=== PATIENT | male | born 1995 | race Caucasian/White ===

== ENCOUNTER 2024-12-12 11:53 | Emergency (ER) | payer BC, SELFPAY ==
[2024-12-12 12:08] VITALS: BP 125/78; PULSE 77; RESP 16; TEMP 36.6; O2SAT 100
--- NOTE | 2024-12-12 13:23 | ED_ITS ---
HPI - URI/Sore Throat General Chief Complaint: Upper Respiratory Infection Stated Complaint: SORE THROAT/NECK PAIN Time Seen by Provider: 12/12/24 13:10 Source: patient, RN notes reviewed and old records reviewed Mode of arrival: ambulatory Limitations: no limitations History of Present Illness HPI Narrative: 29 year old male presents to [facility] care with complaints of left sided sore throat since yesterday with some neck discomfort on same side. Patient reports that pain is sharp at times reports painful swallowing. Patient states some nasal congestion with drainage, denies any cough or any fevers. Patient has taken some Sudafed for his symptoms. MD elicited complaint: sore throat Pertinent past history: other (strep when child) Onset (ago): day(s) (since yesterday) Pain scale (0-10): 4 Description of mucous: clear Able to tolerate fluids by mouth: Yes Treatments prior to arrival: other (Sudafed) Related Data Home Medications ?Medication ?Instructions ?Recorded ?Confirmed ?Last Taken ?Type No Home Medications 12/12/24 12/12/24 Unknown History Allergies Allergy/AdvReac Type Severity Reaction Status Date / Time No Known Allergies Allergy Verified 12/12/24 12:11 Review of Systems Review of Systems: CONSTITUTIONAL: Denies malaise, chills, sweats, or fever. EYES: Denies visual changes, redness, or discharge. ENT: Reports rhinorrhea, congestion, no sinus pain,no otalgia and positive sore throat. CARDIOVASCULAR: Denies chest pain, palpitations, or edema. RESPIRATORY: Reports no cough.? Denies dyspnea. GASTROINTESTINAL: Denies abdominal pain, nausea, vomiting, diarrhea SKIN: Denies rash or itching. MUSCULOSKELETAL: Denies myalgia. NEUROLOGIC: Denies headache. All systems reviewed & are unremarkable except as noted in HPI and below PMFSH Past Medical History Medical History (Updated 12/14/24 @ 20:56 by Stacie Duarte NP) History of strep sore throat when child Social History Social History (Updated 12/14/24 @ 20:57 by Stacie Duarte NP) Smoking status: Never smoker Alcohol intake: current Alcohol use details: social Substance use type: does not use Living arrangements: with family Gender identity (if verbalized by the patient): Male Comments At time of signature, agree with nursing past medical, surgical, social and family history. There is no relevant family history pertinent to the presenting complaint Exam Narrative: GENERAL: Well-appearing, well-nourished, and in no acute distress. HEAD: Normocephalic EYES: PERRLA, conjunctivae clear ENT: Nares clear, turbinates edematous and erythematous, clear discharge. Mucous membranes moist. TM pearly fam with dull light reflex bilaterally; no tragal tenderness. Oropharynx erythematous without lesions. Tonsils red not enlarged and throat with some white patches, no drooling, no hoarseness, no trismus, uvula midline.post nasal drainage NECK: Supple. No lymphadenopathy reports some left side of neck tenderness CHEST: Clear to auscultation, breath sounds equal. No wheezing, rhonchi, rales, or stridor. No respiratory distress, speaks in full sentences. no cough noted SAO2 100% on room air HEART: Regular rate and rhythm. No murmur heard. SKIN: Warm, dry, no rash. NEURO: Alert and oriented x3. PSYCH: Normal mood and affect Course Course Emergency Course: Patient is aware of diagnosis, understands and agrees to treatment plan.? Anticipatory guidance given.? Patient agrees to follow-up as directed and is aware of reasons to seek care at the emergency department. Portions of this record may have been created with voice recognition software Level of Care: Express Care Visit Vital Signs Vital signs: Vital Signs Temperature 36.6 C 12/12/24 12:08 Pulse Rate 77 12/12/24 12:08 Respiratory Rate 16 12/12/24 12:08 Blood Pressure 125/78 12/12/24 12:08 Pulse Oximetry 100 12/12/24 12:08 Temperature 36.6 C 12/12/24 12:08 Pulse Rate 77 12/12/24 12:08 Respiratory Rate 16 12/12/24 12:08 Blood Pressure 125/78 12/12/24 12:08 Pulse Oximetry 100 12/12/24 12:08 Reviewed MDM - URI/Sore Throat MDM Narrative Medical decision making narrative: Differential diagnosis considered: Gold virus, strep pharyngitis, allergic rhinitis, upper respiratory tract infection, sinusitis, rhinosinusitis, nasopharyngitis. viral pharyngitis, otitis media, otitis externa, pneumonia, bronchitis, viral cough syndrome, viral syndrome, and influenza.? Exam findings show no acute concerns or changes; patient is non-toxic appearing and is in no distress.? Patient is appropriate for outpatient treatment and follow-up. Differential Diagnosis Differential diagnosis: Likely upper respiratory infection, viral infection, pharyngitis and other (strep pharyngitis) Medical Records Attestation: I reviewed the patient's medical records. Lab Data Attestation: I reviewed the patient's lab results. Lab results narrative: strep screen negative, culture sent Labs: Lab Results 12/12/24 Range/Units 13:32 POC Grp A Strep Screen Negative (Negative) Critical Care Time Critical Care Time Critical Care Time: No Discharge Plan Discharge Clinical Impression: Upper respiratory infection Qualifiers: URI type: unspecified URI Qualified Code(s): J06.9 - Acute upper respiratory infection, unspecified Pharyngitis Qualifiers: Pharyngitis/tonsillitis etiology: unspecified etiology Qualified Code(s): J02.9 - Acute pharyngitis, unspecified Patient Disposition: Home, Self-Care Condition: Stable Instructions: Pharyngitis (ED), Upper Respiratory Infection (ED) Additional Instructions: Increase fluids especially juices and water Phwx-exm-yeopxue cough and cold medicine of your choice for your symptoms Zyrtec Claritin or Natasha daily include plain Sudafed Tylenol or ibuprofen for any fever pain heat to the face 20-30 minutes 4-6 times a day for pain Salt water gargles, throat lozenges or throat sprays as desired Your strep test today was negative. A throat culture will be sent to the laboratory for further testing. IF the test is positive, you will receive a phone call within 48 hours and an appropriate antibiotic will be initiated at that time. Patient Language: Kazakh Prescriptions: No Action No Home Medications Follow-up/Referrals: PHYSICIAN,[employer] SPECIALIST [Primary Care Provider] - Time of Disposition: 13:26 Quality Lu Coma Scale Eyes: Open Verbal: Oriented and Alert Motor: Follows Commands Lu Coma Total Score: 15
[2024-12-12 13:34] LABS: EDSTREPNEGPOS1 Negative (Negative)
== END 2024-12-12 13:32 | disposition home or self-care (01) ==
PROVIDERS: Emergency Provider Registered Nurse
DX: J06.9 Acute upper respiratory infection, unspecified (principal); J02.9 Acute pharyngitis, unspecified
CPT/HCPCS: 87081; 87880; 99203; G0463

== ENCOUNTER 2025-10-02 21:42 | Emergency (ER) | payer BC, SELFPAY ==
[2025-10-02 21:41] VITALS: BP 111/63; PULSE 76; RESP 14; TEMP 36.8; O2SAT 100
[2025-10-02 21:46] VITALS: BP 118/69; PULSE 77; RESP 14; TEMP 36.8; O2SAT 100
[2025-10-02 22:01] VITALS: BP 105/65; PULSE 71; RESP 14; O2SAT 100
[2025-10-02 22:31] VITALS: BP 104/69; PULSE 75; RESP 12; O2SAT 100
--- NOTE | 2025-10-02 22:39 | ED_ITS ---
HPI - Back Pain/Injury General Chief Complaint: Back Pain/Injury Stated Complaint: back pain Time Seen by Provider: 10/02/25 22:28 History of Present Illness HPI Narrative: 29-year-old male with history of longstanding sciatica presenting to the emergency department with low back pain radiating down his left leg consistent with his known sciatica pain. States that is the worst it has been previously and usually response to rest, position changes, anti-inflammatories. He has previously had physical therapy for this and steroid injections into his spine /hip with some intermittent relief. No previous surgical interventions. He has had MRIs before that showed disc bulging. he states he was doing some heavy lifting and repetitive activities throughout the day yesterday which could have triggered today's episode. He called ambulance as he was having difficulty with the pain. At rest and certain positions he has limited pain and otherwise comfortable appearing without distress. He states that trying to get up and walker certain bending motions of his left leg cause the pain to reproduce. No weakness or numbness in his foot, no footdrop. No traumatic injuries. Was otherwise in his normal state of health. No systemic symptoms otherwise besides the pain. Related Data Allergies Allergy/AdvReac Type Severity Reaction Status Date / Time No Known Allergies Allergy Verified 10/02/25 21:46 Review of Systems Review of Systems: As reviewed above in HPI All systems reviewed & are unremarkable except as noted in HPI and below PMFSH Past Medical History Medical History History of strep sore throat when child Social History Social History Smoking status: Never smoker Alcohol intake: current Alcohol use details: social Substance use type: does not use Living arrangements: with family Gender identity (if verbalized by the patient): Male Exam Narrative: GENERAL: [Well-appearing, well-nourished, and in no acute distress.] HEAD: [Normocephalic, atraumatic.] EYES: [PERRLA and EOMI.] ENT: Nares clear, no rhinorrhea or epistaxis. Mucous membranes moist. NECK: Supple. CHEST: [Clear to auscultation. No respiratory distress.] HEART: [Regular rate and rhythm]. No murmur heard. [Normal peripheral pulses.] ABDOMEN: [Soft, nondistended], [nontender], [No rigidity or guarding] EXTREMITIES: No midline spinal tenderness. No step-offs deformities of the hip. Negative straight leg raise bilaterally, EHL and FHL 5/5 strength bilaterally. Sensation intact globally. SKIN: Warm, dry, no rash. NEURO: [No focal deficits]. Alert and oriented [x3.] PSYCH: [Normal mood and affect.] Course Vital Signs Vital signs: Vital Signs Temperature 36.8 C 10/02/25 21:41 Pulse Rate 76 10/02/25 21:41 Respiratory Rate 14 10/02/25 21:41 Blood Pressure 111/63 10/02/25 21:41 Pulse Oximetry 100 10/02/25 21:41 Oxygen Delivery Room Air 10/02/25 21:41 Temperature 36.8 C 10/02/25 21:46 Pulse Rate 67 10/02/25 23:01 Respiratory Rate 14 10/02/25 23:01 Blood Pressure 109/72 10/02/25 23:01 Pulse Oximetry 100 10/02/25 23:01 Oxygen Delivery Room Air 10/02/25 21:41 MDM MDM Narrative Medical decision making narrative: 29-year-old male with history of longstanding sciatica presenting to the emergency department with low back pain radiating down his left leg consistent with his known sciatica pain. States that is the worst it has been previously and usually response to rest, position changes, anti-inflammatories. He has pr eviously had physical therapy for this and steroid injections into his spine /hip with some intermittent relief. No previous surgical interventions. He has had MRIs before that showed disc bulging. he states he was doing some heavy lifting and repetitive activities throughout the day yesterday which could have triggered today's episode. He called ambulance as he was having difficulty with the pain. At rest and certain positions he has limited pain and otherwise comfortable appearing without distress. He states that trying to get up and walker certain bending motions of his left leg cause the pain to reproduce. No weakness or numbness in his foot, no footdrop. No traumatic injuries. Was otherwise in his normal state of health. No systemic symptoms otherwise besides the pain. No midline spinal tenderness. No step-offs deformities of the hip. Negative straight leg raise bilaterally, EHL and FHL 5/5 strength bilaterally. Sensation intact globally. No saddle anesthesia or loss of continence. no fever chills. No traumatic injuries. No red flags for back pain at this time Hemodynamically stable. Suspect acute on chronic sciatic pain and given medications for pain and inflammation as well as lidocaine patch. No indications for advanced imaging at this time fluid will re-evaluated for pain improvement and ambulate the patient afterwards. Will refer to pain management given upon DC. Pain improved upon reassessment and ambulatory without any difficulty. Remains hemodynamically stable. Medications sent to pharmacy and pain management referral provided. Safe for discharge with return precautions. Differential Diagnosis Differential Diagnosis: Suspect acute on chronic sciatic pain, no red flags for spinal cord injury or involvement given lack of neurological findings. Lab Data MDM Lab Attestation statement: I personally reviewed the patient's lab results. Discharge Plan Discharge Clinical Impression: Sciatica Patient Disposition: Home Condition: Stable Instructions: Antibiotic Form, Sciatica (ED) Additional Instructions: We will send you home with steroids and pain control medications for your sciatica. Return with any emergent concerns otherwise follow-up with regular doctor and the pain management physician that we have referred you to. Patient Language: Maori Prescriptions: New ketorolac 10 mg tablet 10 mg PO Q8H PRN (Reason: pain) 5 Days Qty: 20 0RF Rx Instructions: maximum total duration of 5 days from all oral, intranasal, or parenteral formulations methocarbamol 750 mg tablet 750 mg PO TID PRN (Reason: pain) Qty: 20 0RF prednisone 50 mg tablet 50 mg PO DAILY 5 Days Qty: 5 0RF lidocaine 5 % adhesive patch,medicated 1 patch topical DAILY Qty: 15 0RF Rx Instructions: leave on most painful area for up to 12 hrs Follow-up/Referrals: PHYSICIAN,[employer] [Primary Care Provider, Internal Medicine] Leopoldo Telles MD [Physician, Pain Management] - 3 Days Referral Note: Recurrent sciatica Time of Disposition: 23:41
[2025-10-02 23:01] VITALS: BP 109/72; PULSE 67; RESP 14; O2SAT 100
[2025-10-02] MEDS: ACETAMINOPHEN 500 MG TABLET 1000 MG PO (23:16)
[2025-10-02] MEDS: dexAMETHasone SOD PHOS INJ 10 MG/ML 1 ML VIAL IM (23:16)
[2025-10-02] MEDS: KETOROLAC 30 MG/ML VIAL (*BKC) IM (23:16)
[2025-10-02] MEDS: LIDOCAINE 5% PATCH 1 PATCH TRANSDERM (23:16)
== END 2025-10-02 23:49 | disposition home or self-care (01) ==
PROVIDERS: Emergency Provider Student in an Organized Health Care Education/Training Program
DX: M54.42 Lumbago with sciatica, left side (principal)
CPT/HCPCS: 96372; 99284; A9270; J1100; J1885